=== PATIENT | male | born 1990 | race African-American/Black ===

== ENCOUNTER 2017-09-01 12:13 | Emergency (ER) | payer MEDICAID, SELFPAY ==
[2017-09-01 12:14] VITALS: BP 141/83; PULSE 81; RESP 16; TEMP 37.3; O2SAT 99; BMI 21.9
--- NOTE | 2017-09-01 12:30 | RAD_ITS ---
STUDY: X-RAY - RIGHT KNEE REASON FOR EXAM: Male, 27 years old. Posterior pain. TECHNIQUE: 4 view(s) of the knee. COMPARISON: None. FINDINGS: Normal visualized distal femur. Normal visualized proximal tibia and fibula. Normal proximal tibiofibular articulation. Normal medial femorotibial compartment. Normal lateral femorotibial compartment. Normal patellofemoral articulation. The soft tissue structures are unremarkable. RAD/Knee 4 or More Views IMPRESSION: Normal x-ray examination of the knee. Electronically Signed: Maik Thomas MD at 13:07 EST Tel [phone], Service support ,
--- NOTE | 2017-09-01 14:04 | ED.VISSUMM ---
- ER Visit Summary Date of Service: 09/01/17 Chief Complaint: [Injury right knee] History of Present Illness: The patient is a 27 M [to the emergency department with an injury to his right knee that occurred while at work today. 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 Patient had a burning sensation and then significant discomfort afterwards. Patient is having a hard time bearing weight secondary to pain. Patient refuses to claim this under workman's comp.] Physical Examination: [HEENT-PERRLA, EOMI. Cranial nerves II through XII grossly intact. TMs clear. Mucous membranes moist. No adenopathy. Cardiovascular-regular rate and rhythm without murmur or ectopy Lungs-clear to auscultation, chest wall stable without crepitus or subcu emphysema Abdomen-normoactive bowel sounds, soft, nontender, no rebound or rigidity, no peritoneal signs. Extremities-intact ?4, normal range of motion, normal pulses, atraumatic]. right knee-there is no effusion noted or evidence of trauma. Patient has pain with flexion extension of the knee. Patient has diffuse tenderness to palpation over the medial and lateral joint lines. Ligamentous exam is very difficult as patient does not tolerate. She is neurovascular intact distally. Test Results: Right knee x-rays showed no evidence of fracture dislocation] Emergency Department Course and Treatment: [Patient was placed in a knee immobilizer and given crutches. ] Patient understands I cannot rule out ligamentous injury or meniscal injury. Patient will need to follow-up with orthopedics and may need further imaging such as MRI to evaluate further if symptoms do not improve. Treatment Plan: [Patient will be given a prescription for Naprosyn and [place]. Patient will be referred to orthopedics on-call for follow-up. Patient will be given work restrictions.] Disposition: [Discharged to home in stable condition. Patient advised to return if increasing pain, swelling, or condition should worsen in any way.] Impression: [Right knee sprain with possible internal derangement] This note was generated with [employer] software. It may contain incorrect words, spelling, and punctuation that were not noted in review of the chart prior to signing ED Disposition - Plan for ED Patient: Chief Complaint: Lower Extremity Injury Referrals: Care Physician,No Primary [Primary Care Provider] -
--- NOTE | 2017-09-01 14:08 | ED.DEP ---
ED Disposition - Plan for ED Patient: Chief Complaint: Lower Extremity Injury Instructions: ED Meniscal Injury Knee Poss, ED Sprain Knee Prescriptions: Hydrocodone Bitart/Apap 5-325 [[place] 5/325] 1 - 2 tab PO Q4H PRN PRN 5 Days #20 tab PRN Reason: Pain Naproxen [Naprosyn] 500 mg PO BID PRN #20 tab Referrals: Care Physician,No Primary [Primary Care Provider] - Brant Cabrera MD [STAFF PHYSICIAN] - 3-5 Days
[2017-09-01 14:25] VITALS: BP 129/77; PULSE 61; RESP 17; O2SAT 99
== END 2017-09-01 14:34 | disposition home or self-care (01) ==
LOC: ED 14:09
PROVIDERS: Emergency Provider Emergency Medicine
DX: S83.91XA Sprain of unspecified site of right knee, initial encounter (principal); X50.1XXA Overexertion from prolonged static or awkward postures, initial encounter; Y93.89 Activity, other specified; Y92.9 Unspecified place or not applicable; Y99.0 Civilian activity done for income or pay; Z72.0 Tobacco use; F12.90 Cannabis use, unspecified, uncomplicated; Z72.89 Other problems related to lifestyle
CPT/HCPCS: 73564; 99284

== ENCOUNTER 2018-08-12 22:39 | Emergency (ER) | payer MEDICAID, SELFPAY ==
[2018-08-12 22:40] VITALS: BP 129/68; PULSE 107; RESP 18; TEMP 36.8; O2SAT 98; BMI 21.9
[2018-08-12 22:52] VITALS: O2SAT 98
--- NOTE | 2018-08-12 22:54 | ED.DCSUM_ITS ---
- ER Visit Summary Date of Service: 08/12/18 Chief Complaint: Cough History of Present Illness: The patient is a 28 M dyspnea past medical or surgical history. Currently on no medications. 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 Has had a chronic cough for the last 4 weeks. At times he has a productive sputum with yellowish and green phlegm. No hemoptysis. He does smoke about half a pack of cigarettes a day. No travel, surgery, calf pain or leg swelling. Subjectively has had a fever. And chills. No significant weight loss. No lung history. Physical Examination: Young male no acute distress. Vital signs are stable. Afebrile. Pulse ox 90% on room air no signs of hypoxia. H EENT exam mild clear rhinorrhea. Swollen nasal turbinates. Posterior pharynx normal. No erythema. No exudate. No trouble swallowing or breathing. No stridor or drooling. Neck nontender. Trachea midline. No lymphadenopathy. Lungs dry hacking cough. No rales, rhonchi or wheezing. Heart regular rhythm rate about 105 no murmur. Abdomen is soft and nontender. Normal bowel sounds no peritoneal signs. Back nontender. Skin unremarkable. Moving all 4 extremities. Calves nontender without edema or cords. Normal motor strength. Neurologically awake and alert with no focal motor deficits. Test Results: Two-view AP and lateral chest x-ray shows right as normal both by myself and the radiologist. No infiltrate. Emergency Department Course and Treatment: Treated with p.o. Hycodan. Repeat exam patient is doing well at 2331. Cough improved post Hycodan. Treatment Plan: Hycodan for cough. No need for antibiotics. Follow-up with a local primary care physician as needed. Disposition: Discharge Impression: Viral bronchitis This note was generated with [employer] software. It may contain incorrect words, spelling, and punctuation that were not noted in review of the chart prior to signing ED Disposition - Plan for ED Patient: Referrals: Care Physician,No Primary [Primary Care Provider] -
--- NOTE | 2018-08-12 22:55 | RAD_ITS ---
STUDY: X-RAY CHEST REASON FOR EXAM: Male, 28 years old. Shortness of breath and cough TECHNIQUE: PA and lateral views of the chest. COMPARISON: 2012 FINDINGS: The lungs are clear and expanded. There is no demonstrated pleural abnormality. Normal size heart. Normal mediastinum and zunilda. Normal visualized pulmonary arteries. Normal visualized aortic arch and descending thoracic aorta. Normal visualized thoracic spine. Normal visualized ribs, clavicles, and shoulders. There is no demonstrated abnormality of the visualized soft tissue structures of the upper abdomen. RAD/Chest PA and Lateral IMPRESSION: Normal x-ray examination of the chest. Electronically Signed: David Infante MD at 23:21 EST , Service support ,
--- NOTE | 2018-08-12 23:34 | ED.DEP ---
ED Disposition - Plan for ED Patient: Disposition: Home or Assisted Living Instructions: Acute Bronchitis Prescriptions: Hydrocodone Bit/Homatropine [Hycodan Syrup] 10 ml JT Q4H PRN PRN #60 udc PRN Reason: Cough Referrals: Cristian Barnett MD [STAFF PHYSICIAN] - 1 Week if not improving Additional Instructions: Hycodan as needed for cough. This has codeine in it so do not drink alcohol or drive while using it. Absolutely need to stop smoking. Follow-up with a local primary care physician if not improving. If your work environment is really kevin and has a lot of industrial chemicals you may want to speak with your employer about getting fitted for a respiratory mask.
[2018-08-12 23:41] VITALS: BP 106/68; PULSE 78; O2SAT 96
== END 2018-08-12 23:43 | disposition home or self-care (01) ==
PROVIDERS: Emergency Provider Emergency Medicine
DX: J20.8 Acute bronchitis due to other specified organisms (principal); F12.90 Cannabis use, unspecified, uncomplicated; Z72.89 Other problems related to lifestyle; Z72.0 Tobacco use
CPT/HCPCS: 71046; 99283